=== PATIENT | female | born 1960 | race Caucasian/White ===

== ENCOUNTER 2020-09-28 07:16 | Day surgery (SDC) | payer MEDICAID ==
[~2020-09-28] VITALS: Ht 149.9 cm; Wt 90.0 kg
[2020-09-28] MEDS: IV RINGERS,LACTATED 1000ML 1,000 ML IV SCH ×2 (07:00→07:51)
[2020-09-28] MEDS ORDERED: [UNRECOGNIZED DRUG - CODE] PO (07:37)
[2020-09-28] MEDS ORDERED: PRAV40TA2 PO (07:37)
[2020-09-28] MEDS ORDERED: ESOM40CA PO (07:37)
[2020-09-28] MEDS ORDERED: FLUT1BLS3 IH (07:37)
[2020-09-28] MEDS ORDERED: METO-313 PO (07:37)
[2020-09-28] MEDS ORDERED: PROPOFOL 10 MG/ML (20ML) VIAL. IV ONE (08:02)
[2020-09-28] MEDS ORDERED: LIDOCAINE 2% PF 5 ML VIAL. ONE (08:02)
[2020-09-28 08:46] VITALS: BP 123/59
--- NOTE | 2020-09-28 13:00 | HP ---
ADMIT DATE: 09/28/2020 REFERRING PHYSICIAN: Dr. Marge Willis. REASON: Dysphagia and atypical chest pain. HISTORY OF PRESENT ILLNESS: A 60-year-old female with past medical history significant for organic heart disease, hypertension, hyperlipidemia, asthma, COPD as well as history of gastric ulcers, hiatal hernias, seen with recurrent epigastric distress and reflux with intermittent dysphagia with liquids and solids. Weight and appetite have been stable. There has been no change in appetite. Omeprazole and Nexium 40 mg daily has only partially controlled her symptoms. With continued issues, she requests additional evaluation. PAST MEDICAL HISTORY: COPD, hypertension, organic heart disease, GERD, hiatal hernia, gastric ulcers. ALLERGIES: PENICILLIN WITH CODEINE INHALER. MEDICATIONS: Include Nexium, fluticasone, levothyroxine, metoprolol, pravastatin. FAMILY AND SOCIAL HISTORY: Former smoker. REVIEW OF SYSTEMS: As per records. PHYSICAL EXAMINATION: GENERAL: Reveals a well-nourished, well-developed female who is alert, cooperative, in mild distress. VITAL SIGNS: Temperature is 97.8, pulse is 75, respiratory rate is 20. LUNGS: Revealed decreased breath sounds. HEART: S1, S2, without S3, S4 or appreciable murmur. ABDOMEN: Reveals a soft abdomen, normoactive bowel sounds. No appreciable hepatosplenomegaly. ASSESSMENT AND PLAN: Dysphagia with gastroesophageal reflux disease. Differential includes achalasia, malignancy, Dumont's, gastroparesis, presbyesophagus, malignancy, Schatzki's ring, eosinophilic esophagitis and/or oropharyngeal disease. Therefore, we will recommend the patient to proceed with upper endoscopy, possible biopsy and/or dilatation. Risks and benefits of procedure including risk of hemorrhage and perforation with operation were discussed. The patient is willing to proceed at this time. CARLITA/MARYSE DR: Sancho TID: [id number]
== END 2020-09-28 08:57 | disposition home or self-care (01) ==
LOC: SURG 07:16
PROVIDERS: ATTEND Internal Medicine Gastroenterology
DX: R13.10 Dysphagia, unspecified (principal); R10.13 Epigastric pain; K44.9 Diaphragmatic hernia without obstruction or gangrene; K21.9 Gastro-esophageal reflux disease without esophagitis; R07.89 Other chest pain; I11.9 Hypertensive heart disease without heart failure; J44.9 Chronic obstructive pulmonary disease, unspecified; E78.00 Pure hypercholesterolemia, unspecified; M19.90 Unspecified osteoarthritis, unspecified site; E03.9 Hypothyroidism, unspecified; F41.9 Anxiety disorder, unspecified; Z87.891 Personal history of nicotine dependence; Z88.0 Allergy status to penicillin; Z88.8 Allergy status to other drugs, medicaments and biological substances; Z79.899 Other long term (current) drug therapy; Z98.890 Other specified postprocedural states; Z20.822 Contact with and (suspected) exposure to COVID-19
CPT/HCPCS: 43235; 43450; 87426; J2704